=== PATIENT | male | born 1975 | race Caucasian/White ===

== ENCOUNTER 2017-09-03 06:13 | Day surgery (SDC) | payer BC ==
[~2017-09-03] VITALS: Ht 182.9 cm; Wt 99.8 kg
--- NOTE | ~2017-09-03 | OP ---
PATIENT NAME: SAMANTHA CHURCHILL MEDICAL RECORD: [id number] :79 LOCATION:[facility] ADMISSION DATE: SURGEON: MAE BISWAS MD DATE OF OPERATION: 09/03/2017 Self referred patient with no PCP. PREOPERATIVE DIAGNOSIS: Incarcerated, nonobstructed, and nonstrangulated left inguinal hernia. POSTOPERATIVE DIAGNOSIS: Large left sliding indirect inguinal hernia, incarcerated, but without obstruction or gangrene. OPERATION PERFORMED: Open anterior repair utilizing Marlex PerFix Light plug and patch. SURGEON: Mae Biswas MD ANESTHESIA: General with LMA per INSURANCE COORDINATOR. PREOPERATIVE NOTE: Mr. Churchill is a very pleasant 42-year-old white male, who has a large and increasingly symptomatic left inguinal hernia. He is brought to the operating room at this time as an outpatient to have it repaired. Under anesthesia in supine position, the patient was prepped and draped in a sterile manner. An oblique transversely oriented incision was made in the left groin and carried down to the external oblique aponeurosis, which was opened through the external ring. The electrocautery was used for hemostasis and a large subcutaneous vein divided between clamps and ligated with 3-0 Vicryl. The patient had a very large hernia, which would not reduce. There was no evidence of gangrene nor obstruction, although there was edema in the hernia and hernia sac. This was dissected from the cord structures and proved to be a large sliding type inguinal hernia. The spermatic cord was from the hernia sac. The internal inguinal ring was partially opened to widen and allow reduction of the hernia, which did prove to be a sliding type hernia with the sigmoid colon comprising large portion of the sac. This was all reduced into the preperitoneal space. There was no femoral or direct hernia component present. The internal inguinal ring was then filled with a size large Marlex Light PerFix plug. This was placed in a modified preperitoneal manner to cover as much of the posterior wall as possible. It was sutured in place with interrupted simple 3-0 Vicryl. The anterior mesh patch was then applied and sutured circumferentially with interrupted 3-0 Vicryl. It was cut so that 2 limbs of the mesh embraced the cord and formed a new internal ring. The wound was irrigated with Ancef/gentamicin solution and infiltrated with 0.25% Marcaine. I then approximated the external oblique aponeurosis over the cord with interrupted 3-0 Vicryl and then closed Helen's fascia with interrupted 3-0 Vicryl and closed the skin with running intracuticular 4-0 Monocryl and Dermabond glue. The incision was then dressed with Maxorb Ag, Tegaderm and Cavilon skin prep and the patient was awakened and taken to the recovery room in stable condition. Blood loss throughout was insignificant and unreplaced and all sponges, instruments, and needles were accounted for. No drain was used and I did not submit a surgical specimen. NOTE: I did resect the ilioinguinal nerve, which coursed along the spermatic cord and was extremely adherent to the cremasteric fascia. OPERATIVE REPORT [id number] SAMANTHA CHURCHILL PLAN: The patient will be discharged to home today assuming he can void and his pain is adequately controlled. He will come back to see me in my office next week. In the meantime, he is given a prescription for [place] 5/325, #30, he can take 1 or 2 p.o. q.4 hours p.r.n. pain, but he is encouraged to perhaps alternate with Advil or ibuprofen. He is to use ice off and on again today and this evening and then p.r.n. for pain. Wearing an athletic supporter or Jockey briefs is recommended also and he is given my personal cell phone number in case he needs to reach me over the weekend or after hours. TRANSINT:[id number] Voice Confirmation ID: [id number] DOCUMENT ID: [id number] MAE BISWAS MD at 1511 CC: [id number] DICTATION DATE: 09/03/17 1121 DIRECTOR CORPORATE: 09/03/17 1324 [facility] 09/03/17 [facility] [address] [id number]
[2017-09-03 07:41] VITALS: BP 116/73; Ht 182.9 cm; Wt 99.8 kg
[2017-09-03 08:04] LABS: BASOPHILS 1.1 % (0-2); EOSINOPHILS 8.7 % (0-7); HEMOGLOBIN 9.2 g/dL (13.5-17.5); IMMATURE GRANULOCYTES 0.3 % (0-5); LYMPHOCYTES 20.4 % (15-50); MCHC 27.1 g/dL (31.0-37.0); MCV 68.7 fL (80.0-100.0); MEAN PLATELET VOLUME 9.9 fL (7.4-10.4); MONOCYTES 8.5 % (2-11); PLATELET COUNT 344 10x3/uL (130-400); RBC 4.95 10x6/uL (4.20-6.10); RDW 18.5 % (11.5-14.5); WBC 6.6 10x3/uL (4.8-10.8)
[2017-09-03 08:05] LABS: MCH 18.6 pg (26.0-34.0)
[2017-09-03 08:17] LABS: CALC OSMOLALITY 276 mosm/kg (275-300); CALCIUM 8.7 mg/dL (8.5-10.1); CARBON DIOXIDE 21.2 mmol/L (21.0-32.0); CHLORIDE - SERUM 105 mmol/L (98-107); CREATININE - SERUM 0.9 mg/dL (0.6-1.3); GLUCOSE 90 mg/dL (74-106); POTASSIUM - SERUM 4.1 mmol/L (3.5-5.1); SODIUM 139 mmol/L (136-145); UREA NITROGEN 10 mg/dL (7-18); eGFR NON AFRICAN AMERICAN > 90 mL/min (90-120)
[2017-09-03 08:25] LABS: INR 1.06 (0.85-1.17); PROTIME 13.4 SECONDS (11.6-15.0)
[2017-09-03 08:26] LABS: APTT 29.2 SECONDS (22.8-39.4)
[2017-09-03] MEDS ORDERED: HYDROCODON-ACE1 EAC7 PO (11:00)
== END 2017-09-03 13:00 | disposition home or self-care (01) ==
LOC: D.OPS 06:13
PROVIDERS: Surgery
DX: K40.90 Unilateral inguinal hernia, without obstruction or gangrene, not specified as recurrent (principal); F17.200 Nicotine dependence, unspecified, uncomplicated; Z01.812 Encounter for preprocedural laboratory examination